=== PATIENT | male | born 1945 | race Caucasian/White ===

== ENCOUNTER → 2024-06-16 | Outpatient (CLI) | payer MEDICARE, BC, SELFPAY ==
[2024-06-16 11:32] LABS: Absolute Lymphocyte Count 0.85 X10^3/uL (0.83-4.51); Absolute Neutrophil Count 4.7 X10^3/uL (2.0-7.7); Basophil# 0.04 X10^3/uL; Basophil% 0.6 % (0-1); Eosinophil# 0.13 X10^3/uL; Hematocrit 41.7 % (40-54); Hemoglobin 13.3 g/dL (13.0-16.5); Lymphocyte # 0.85 X10^3/ul (0.83-4.51); Lymphocyte % 13.4 % (19-41); Mean Corp Hgb Conc 31.9 g/dL (32-36); Mean Corpuscular Hgb 29.8 pg (27.0-32.0); Mean Corpuscular Volume 93.3 fL (80-94); Mean Platelet Vol. 11.5 fl (6.2-12.0); Monocyte# 0.63 X10^3/uL; Monocyte% 9.9 % (0-10); NRBC Flagged by Analyzer 0 % (0-5); Neutrophil # 4.69 X10^3/uL (2.7-7.7); Neutrophil % 73.8 % (47-70); Platelet Count 244 K/mm3 (150-450); RBC Distribution Width CV 14.5 % (11.6-14.6); RBC Distribution Width SD 49.7 fl (35.1-43.9); Red Blood Count 4.47 M/mm3 (4.6-6.2); White Blood Count 6.4 K/mm3 (4.4-11.0)
[2024-06-16 11:36] LABS: Erythrocyte Sedimentation Rate 11 mm/hr (0-20)
[2024-06-16 12:20] LABS: ALB/GLOB Ratio 0.9 RATIO (0.9-2.4); AST(SGOT) 110 U/L (<=37); Alanine Aminotransfer ALT/SGPT 110 U/L (<=46); Albumin, Serum 3.2 g/dL (3.4-4.8); Alkaline Phosphatase 308 U/L (40-129); Anion Gap 9 (5-15); BUN 15 mg/dL (4-19); BUN/Creat Ratio 10.7 RATIO (10-20); Calcium,Total 9.1 mg/dL (7.6-11.0); Carbon Dioxide 22.6 mmol/L (21.0-32.0); Chloride 105 mmol/L (98-108); Creatinine, Serum 1.42 mg/dL (0.70-1.20); EST Glomerular Filtration Rate 50 (>60); Ferritin 893 ng/mL (37-417); Free T3 2.6 pg/mL (2.18-3.98); Globulin 3.8 g/dL (2.2-4.2); Glucose 92 mg/dL (70-99); Potassium 4.3 mmol/L (3.3-5.1); Sodium Level 137 mmol/L (133-145); Vitamin B12 634 pg/mL (180-914)
[2024-06-16 13:10] LABS: CRP < 3.00 mg/L (0.0-3.0); LDH 243 U/L (87-241)
[2024-06-21 12:08] LABS: Anti-Centromere B Ab <0.2 AI (0.0-0.9); Anti-Chromatin <0.2 AI (0.0-0.9); Anti-Jo <0.2 AI (0.0-0.9); Anti-Scleroderma-70 AB <0.2 AI (0.0-0.9); Anti-dsDNA Ab 1 IU/mL (0-9); RNP Ab 0.2 AI (0.0-0.9); SJOGREN'S Anti-SS-A test < 0.2 AI (0.0-0.9); SJOGREN'S Anti-SS-B test < 0.2 AI (0.0-0.9); Smith Ab 0.2 AI (0.0-0.9); Vitamin D 1,25-Dihydroxy <5.0 pg/mL (24.8-81.5)
[2024-06-24 03:07] LABS: ACCA 67 units (0-90); ALCA 2 units (0-60); AMCA 22 units (0-100); Alpha-1-Globulins 0.3 g/dL (0.0-0.4); Alpha-2-Globulins 0.8 g/dL (0.4-1.0); Carbohydrate AG 19-9 53 U/mL (0-35); Endomysial Antibody IgA Negative (Negative); Gamma Globulin 1.8 g/dL (0.4-1.8); IgG, Quant 1838 mg/dL (603-1613); Immunoglobulin A 425 mg/dL (61-437); Immunoglobulin E 552 IU/mL (6-495); Immunoglobulin G, Subclass 1 930 mg/dL (248-810); Immunoglobulin G, Subclass 2 528 mg/dL (130-555); Immunoglobulin G, Subclass 3 51 mg/dL (15-102); Immunoglobulin G, Subclass 4 178 mg/dL (2-96); Immunoglobulin M 81 mg/dL (15-143); PROEL- TOTAL PROTEIN 6.7 g/dL (6.0-8.5); Perinuclear Ab (P-ANCA) <1:20 titer (Neg:<1:20); gASCA 27 units (0-50); t-Transglutaminase IgA 5 U/mL (0-3)
== END | disposition home or self-care (01) ==
PROVIDERS: PCP Internal Medicine; Referring Provider Internal Medicine Gastroenterology; Visit Provider Internal Medicine Gastroenterology
DX: D64.9 Anemia, unspecified (principal); C25.9 Malignant neoplasm of pancreas, unspecified; K86.1 Other chronic pancreatitis; K90.0 Celiac disease; K63.3 Ulcer of intestine; E03.9 Hypothyroidism, unspecified
CPT/HCPCS: 36415; 80053; 82607; 82652; 82728; 82784; 82785; 82787; 83516; 83615; 84165; 84439; 84443; 84481; 85025; 85652; 86036; 86037; 86140; 86225; 86235; 86255; 86301; 86334; 86671

== ENCOUNTER → 2024-06-17 | Outpatient (CLI) | payer MEDICARE, BC, SELFPAY ==
--- NOTE | 2024-06-17 09:33 | US_ITS ---
EXAM: US Abdomen Limited, Right Upper Quadrant CLINICAL INDICATION: S/P WHIPPLE PROCEDURE AND ELEVATED LFTS TECHNIQUE: Real-time ultrasound of the right upper quadrant with image documentation. COMPARISON: No relevant prior studies available. FINDINGS: LIVER: Liver measures up to 61.6 cm. Fatty infiltration of the liver. No intrahepatic bile duct dilation. GALLBLADDER: Cholecystectomy. COMMON BILE DUCT: CBD is not visualized. PANCREAS: Pancreas not well visualized. RIGHT KIDNEY: 5.1 cm right renal cyst. No stones. No hydronephrosis. The right kidney measures 13.7 x 5.1 x 5.6 cm. US/Abdomen Limited IMPRESSION: Fatty infiltration of the liver. Reading Location[facility]
== END | disposition home or self-care (01) ==
LOC: US 09:32
PROVIDERS: PCP Internal Medicine; Referring Provider Internal Medicine Gastroenterology; Visit Provider Internal Medicine Gastroenterology
DX: R74.8 Abnormal levels of other serum enzymes (principal); Z90.49 Acquired absence of other specified parts of digestive tract; Z90.410 Acquired total absence of pancreas
CPT/HCPCS: 76705

== ENCOUNTER → 2024-07-15 | Outpatient (CLI) | payer MEDICARE, BC, SELFPAY ==
--- NOTE | 2024-07-15 13:15 | CT_ITS ---
PROCEDURE: ABDOMEN/PELVIS WITH CONTRAST 07/15/2024 REASON FOR EXAM: ABD PAIN TECHNIQUE: Abdomen and pelvis CT with intravenous contrast. Coronal and Sagittal reconstruction series were provided. PATIENT PREPARATION: Per protocol ORAL CONTRAST TYPE: None. CONTRAST: Isovue-300 VOLUME: 100 mL, oral contrast material also administered. One or more dose reduction techniques were used (e.g., Automated exposure control, adjustment of the mA and/or kV according to patient size, use of iterative reconstruction technique. RADIATION DOSE SUMMARY: CTDlvol: 26 mGy DLP: 800 mGycm COMPARISON: Abdominal ultrasound 06/17/2024. FINDINGS: Lung bases: Small bilateral pulmonary nodules. Mild bibasilar atelectasis. The heart is normal in size with coronary artery calcifications. Liver: The liver is normal in size with diffuse hepatic steatosis. The major portal veins are patent. No biliary ductal dilation. Gallbladder: Prior cholecystectomy. Spleen: Normal in size. Pancreas: The pancreatic body and tail are markedly atrophic. There is nonvisualization of the pancreatic head. Adrenals: Nodular hyperplasia of the left adrenal gland. Unremarkable right adrenal gland. Kidneys: Partially calcified right renal cysts. No hydronephrosis or nephrolithiasis. Bladder: Mildly distended and unremarkable. Reproductive Organs: Prior TURP. Bowel: Contrast opacifies the stomach and small bowel loops. Probable prior bowel resection and anastomosis with suture material within the midline anterior upper abdomen. The stomach and duodenum remain on the left side of the hemiabdomen, with no retro mesenteric segment of the duodenum, compatible with malrotation. The SMA and SMV are in normal anatomic relationship. Moderate distal colonic diverticulosis. No ascites or pneumoperitoneum. Normal appendix. Lymph nodes: No suspicious lymphadenopathy. Vasculature: Severe mixed plaque of the aortoiliac vessels. Bones: Soft tissue scarring along the ventral midline abdominal wall, compatible with prior abdominal surgery. Thoracolumbar spondylosis. CT/Abdomen/Pelvis WITH Contrast IMPRESSION: 1. No acute abdominopelvic finding. 2. 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 Correlation with patient history and prior surgeries is recommen ded. No finding to indicate concern for acute etiology. 3. Nonvisualization of the pancreatic head, which may be secondary to atrophy o r small-bowel malrotation. MRCP is recommended for further evaluation as pancreatic neoplasm can not be excluded. 4. Bibasilar pulmonary nodules. Correlation with prior imaging recommended, or if patient is high risk, consider follow-up CT chest in 12 months to evaluate for stability/resolution. Reading Location: [id number]
== END | disposition home or self-care (01) ==
LOC: CT 13:01
PROVIDERS: PCP Internal Medicine; Referring Provider Internal Medicine Gastroenterology; Visit Provider Internal Medicine Gastroenterology
DX: R10.9 Unspecified abdominal pain (principal); K86.1 Other chronic pancreatitis; Z90.410 Acquired total absence of pancreas; Z90.49 Acquired absence of other specified parts of digestive tract
CPT/HCPCS: 74177; Q9967

== ENCOUNTER → 2024-12-20 | Outpatient (CLI) | payer MEDICARE, BC, SELFPAY ==
[2024-12-20 15:53] LABS: Hematocrit 42.3 % (40-54); Hemoglobin 13.6 g/dL (13.0-16.5); Immature Granulocytes Count 0.020 X10^3/uL (0.0-0.0); Mean Corp Hgb Conc 32.2 g/dL (32-36); Mean Corpuscular Volume 97.9 fL (80-94); Mean Platelet Vol. 11.6 fl (6.2-12.0); NRBC Flagged by Analyzer 0 % (0-5); Platelet Count 193 K/mm3 (150-450); RBC Distribution Width CV 12.9 % (11.6-14.6); RBC Distribution Width SD 46.1 fl (35.1-43.9); Red Blood Count 4.32 M/mm3 (4.6-6.2); White Blood Count 6.3 K/mm3 (4.4-11.0)
[2024-12-20 16:18] LABS: AST(SGOT) 40 U/L (<=37); Alanine Aminotransfer ALT/SGPT 39 U/L (<=46); Albumin, Serum 3.9 g/dL (3.4-4.8); Alkaline Phosphatase 100 U/L (40-129); Anion Gap 10 (5-15); BUN 21 mg/dL (4-19); BUN/Creat Ratio 15.9 RATIO (10-20); Calcium,Total 9.3 mg/dL (7.6-11.0); Carbon Dioxide 22.3 mmol/L (21.0-32.0); Chloride 106 mmol/L (98-108); Ferritin 384 ng/mL (37-417); Globulin 3.1 g/dL (2.2-4.2); Glucose 89 mg/dL (70-99); Potassium 4.5 mmol/L (3.3-5.1); Vitamin D,25 Hydroxy 38.9 ng/mL (30-100)
[2024-12-20 16:53] LABS: Iron Binding Capacity,Total 268 ug/dL (250-450)
[2024-12-20 16:58] LABS: Amylase 55 U/L (28-100); CRP < 3.00 mg/L (0.0-3.0); Iron 115 ug/dL (65-175); Iron Binding Capacity,Unsat 153 ug/dL (228-428); LDH 213 U/L (87-241); Lipase 7 U/L (13-75)
[2024-12-24 14:09] LABS: Vitamin D 1,25-Dihydroxy 23.1 pg/mL (24.8-81.5)
== END | disposition home or self-care (01) ==
LOC: LAB 15:06
PROVIDERS: PCP Internal Medicine; Referring Provider Internal Medicine Gastroenterology; Visit Provider Internal Medicine Gastroenterology
DX: K90.0 Celiac disease (principal); K86.1 Other chronic pancreatitis; K63.3 Ulcer of intestine
CPT/HCPCS: 36415; 80053; 82150; 82306; 82652; 82728; 82784; 83516; 83540; 83550; 83615; 83690; 85025; 85652; 86140; 86255; 86301